=== PATIENT | female | born 1965 | race Two or more races ===

== ENCOUNTER 2018-04-04 19:53 | Emergency (ER) | payer OTHER ==
[~2018-04-04] VITALS: Ht 165.1 cm; Wt 68.0 kg
[2018-04-04 20:36] VITALS: BP 160/88
[2018-04-04] MEDS ORDERED: TRIAMCINOLONE 40MG/ML 1ML VIAL IX ONE (22:00)
[2018-04-04] MEDS ORDERED: ACETAMINOPHEN/CODEINE#3 (300/30mg) TAB PO ONE (22:30)
[2018-04-04] MEDS ORDERED: BACLOFEN 10 MG TAB PO ONE (22:30)
== END 2018-04-04 22:31 | disposition home or self-care (01) ==
LOC: ER 19:53
DX: G44.209 Tension-type headache, unspecified, not intractable (principal); M62.838 Other muscle spasm; M54.2 Cervicalgia; M25.519 Pain in unspecified shoulder
CPT/HCPCS: 20552; 99284; J3301